=== PATIENT | female | born 1950 | race Two or more races ===

== ENCOUNTER 2019-03-17 13:37 | Emergency (ER) | payer OTHER ==
[~2019-03-17] VITALS: Ht 157.5 cm; Wt 100.0 kg
[2019-03-17] MEDS ORDERED: TRAMADOL 50MG TABLET PO ONE (16:00)
[2019-03-17] MEDS ORDERED: KETOROLAC 30MG/ML VIAL IM ONE (16:00)
[2019-03-17 18:35] VITALS: BP 137/62
== END 2019-03-17 18:45 | disposition home or self-care (01) ==
LOC: ER 13:37
DX: S33.5XXA Sprain of ligaments of lumbar spine, initial encounter (principal); I10 Essential (primary) hypertension; E11.9 Type 2 diabetes mellitus without complications; Z88.8 Allergy status to other drugs, medicaments and biological substances; V47.1XXA Car passenger injured in collision with fixed or stationary object in nontraffic accident, initial encounter; W22.12XA Striking against or struck by front passenger side automobile airbag, initial encounter; Y93.89 Activity, other specified; Y92.524 Gas station as the place of occurrence of the external cause
CPT/HCPCS: 72100; 96372; 99283; J1885